=== PATIENT | female | born 1975 | race Caucasian/White ===

== ENCOUNTER → 2021-06-12 | Day surgery (SDC) | payer BC ==
[~2021-06-12] VITALS: Ht 162.6 cm; Wt 95.7 kg
[~2021-06-12] MED LIST: FLEXERIL PO; TOPAMAX 25 MG T25 M1 PO; VENLAFAXINE HC150 M1 PO
[2021-06-12 08:06] VITALS: BP 126/84
[2021-06-12 08:51] VITALS: BP 126/84
== END | disposition home or self-care (01) ==
LOC: OR 06:18
PROVIDERS: ATTEND Orthopaedic Surgery
DX: M25.561 Pain in right knee (principal); S83.211A Bucket-handle tear of medial meniscus, current injury, right knee, initial encounter; M17.11 Unilateral primary osteoarthritis, right knee; M94.261 Chondromalacia, right knee; K21.9 Gastro-esophageal reflux disease without esophagitis; F32.9 Major depressive disorder, single episode, unspecified; F41.9 Anxiety disorder, unspecified; Z98.890 Other specified postprocedural states; Z79.899 Other long term (current) drug therapy; Z98.84 Bariatric surgery status; Z90.49 Acquired absence of other specified parts of digestive tract; Z88.8 Allergy status to other drugs, medicaments and biological substances; Z91.040 Latex allergy status; X58.XXXA Exposure to other specified factors, initial encounter; Y93.89 Activity, other specified; Y92.89 Other specified places as the place of occurrence of the external cause; Y99.8 Other external cause status
CPT/HCPCS: 50010; 50101; 50405; 56526; 57103; 57180; 58577; 58589; 62110; 62900; 70005